=== PATIENT | female | born 1955 | race Caucasian/White ===

== ENCOUNTER 2018-03-30 19:54 | Emergency (ER) | payer OTHER ==
[~2018-03-30] VITALS: Ht 162.6 cm; Wt 107.0 kg
[~2018-03-30 19:54] MED LIST: AMLODIPINE BESYL5 MG PO; ARIXTRA; AUGMENTIN 875875 M1 PO; BUDEPRION SR150 MG PO; BUPROPION HCL200 MG PO; COLACE100 MG; CYMBALTA60 MG PO; GEMFIBROZIL 60600 MG PO; GLUCOPHAGE500 MG PO; GLUMETZA500; GLYBURIDE 2.52.5 M1 PO; HYDROCODON-ACE1 EAC7 PO; IBUPROFEN PO; LEVOTHROID175 MCG PO; LOVASTAT40; METAMUCIL PAC1 UDPK1; MOBIC15 MG PO; MOBIC7.5 MG PO; NORVASC10 MG PO; PERCOCET 5-3251 EACH PO; PROAIR HFA8.5 GM INH; PROVENTIL HFA6.7 G1 INH; ROXICODONE5 M1 PO; SIMVASTATIN20 MG PO; SYNTHROID125 MCG PO; TRIAMTERENE-HC1 EAC3 PO; ZANTAC 150MG T150 M1 PO; ZOLOFT100 MG PO
[2018-03-30] MEDS ORDERED: LANTUS SUBQ (20:09)
[2018-03-30] MEDS ORDERED: ZOLOFT100 MG PO (20:10)
[2018-03-30] MEDS ORDERED: NORCO 5-325 TA1 EACH PO (20:57)
[2018-03-30 21:51] VITALS: BP 141/73
== END 2018-03-30 21:51 | disposition home or self-care (01) ==
LOC: M.ERS 19:54
DX: S50.01XA Contusion of right elbow, initial encounter (principal); V89.2XXA Person injured in unspecified motor-vehicle accident, traffic, initial encounter; Y93.89 Activity, other specified; Y92.89 Other specified places as the place of occurrence of the external cause; Y99.8 Other external cause status; E11.9 Type 2 diabetes mellitus without complications; I10 Essential (primary) hypertension; E03.9 Hypothyroidism, unspecified; F32.9 Major depressive disorder, single episode, unspecified; E78.00 Pure hypercholesterolemia, unspecified; M19.90 Unspecified osteoarthritis, unspecified site; J45.909 Unspecified asthma, uncomplicated; Z98.890 Other specified postprocedural states